=== PATIENT | female | born 1950 | race Caucasian/White ===

== ENCOUNTER 2019-11-08 13:32 | Outpatient (CLI) | payer MEDICARE, SELFPAY ==
--- NOTE | 2019-11-11 11:25 | ONC FU_ITS ---
Dr. Edwards Patient Follow-Up Note Patient: Elen Jones Unit #: [id number]: 1950 Dicatated By: Jairo Edwards M.D.Date of Visit:November 08, 2019 Onc Med Follow-up/Prog Note Chief Complaint: Breast cancer. History of Present Illness: This is a 69 year-old woman with grade 2 infiltrating ductal carcinoma of the left breast, stage IIA (T2, pN1a, M0), ER/SC positive and HER-2/lindsey negative. Sometime over the summer she become aware of any lump in her left breast. She had been getting pretty regular mammogram screening, though she had missed it in 2017. Her bilateral mammogram on 03/02/2018 showed evidence of spiculated mass posteriorly in the left breast in the upper-outer quadrant measuring 1.6 x 1.4 cm. Additional imaging was recommended. Additional mammogram views and left breast ultrasound on 03/11/2018 was BI-RADS 5, highly suspicious for left breast malignancy. Ultrasound-guided needle biopsy of the mass on 03/26/2018 showed grade 2 invasive ductal carcinoma. The breast prognostic profile showed ER positive at 95% and SC positive at 65%. HER-2/lindsey was 2+ by IHC, but negative by FISH with amplification ratio 1.0 and 2.5 HER-2/ copies/cell. The Ki-67 was 10%, intermediate risk. On 04/22/2018 she underwent left breast lumpectomy with axillary lymph node sampling. Pathology was again consistent with grade 2 infiltrating ductal carcinoma. The tumor measured 1.7 x 1.4 cm. There was evidence of lymphovascular space invasion and perineural space invasion. The margins were free of resection. The lymph node sampling included a total of 4 lymph nodes, 3 of which were involved, including the sentinel node. The largest focus measured 2.4 cm, but with no extra capsular extension identified. I had seen her initially on 04/27/2018. She he was adamantly opposed to taking adjuvant chemotherapy. As such, she was referred to Dr. Mcdonald and she was then given radiation to the left breast, completed on 07/06/2018 to a total dose of 6000 cGy. She also received 5000 cGy to the left supraclavicular region. In the meantime, she had started on adjuvant hormonal therapy with letrozole 2.5 mg daily in April 2018. Her other medical illnesses include hypertension and degenerative arthritis/degenerative disease of the spine. Her baseline DEXA scan on 05/06/2018 showed borderline osteoporosis with T score -0.4 in the lumbar spine, -2.3 in the left femoral neck and -2.4 in the right femoral neck. She was started on treatment with alendronate. She has a history of smoking for 50 years, up to 1 1/2 packs of cigarettes daily. She did cut down. She is seen for a follow-up visit. She has been feeling pretty good generally. She has has her energy was low, but it improved after she started taking B12. She has normal activity. ECOG score is 0. She has good appetite. She has no fever. She does have some hot flashes and sweating, but tolerable. She had flu towards the end of June and she had cough with it that lasted for more than a month. It did finally get better, though. She has some shortness of breath, but she says her breathing is pretty good. She does have some cough still. She has a little bit of chest pain. She also has occasional stinging in the area of the left breast/axilla. She has no GI or complaints. She has a little bit of aching, mainly in the shoulders and hands. She says it is tolerable. She has just occasional headache. She does not complain of dizziness. She has some numbness/tingling in her fingers. Medications: Atenolol 1 Tablet (of 25 mg) Oral daily, ClonazePAM 1 Tablet (of 0.5 mg) Oral b.i.d., cumin 1 Capsule Oral daily, Femara 1 Tablet (of 2.5 mg) Oral daily, Fosamax 1 Tablet (of 70 mg) Oral q 7 days, tumeric 1 Capsule Oral daily, Vitamin B12 1 Tablet Oral daily Allergies: No Known Allergies. Review of Systems: Constitutional - She has been generally feeling good. Her energy is good. She has normal activity. Her appetite is good and weight is stable. No fever or chills. She is having hot flashes with sweating. ECOG score is 0, ENMT - No sinus congestion/drainage. No mouth sores. No sore throat or difficulty swallowing, Hematologic/Lymphatic - No abnormal bruising or bleeding, Respiratory - She gets short of breath with exertion. No cough. No pleuritic pain or hemoptysis. She continues to smoke 0.5- 1 pack daily, Cardiovascular - She has occasional anginal pain. No palpitations, Gastrointestinal - No nausea or vomiting. No heartburn or acid reflux. No diarrhea or constipation. No blood in the stool or black stools, Genitourinary (F) - No dysuria or hematuria. No urinary frequency. No urgency or incontinence, Musculoskeletal - She has unchanged arthritis pain in her hands and shoulders, Integumentary - No skin complications, Neurologic - She has a sinus headache. No dizziness. She has tingling in her fingers, Psychiatric - No anxiety or depression. No insomnia. Vital Signs: Her weight is 165 pounds. Blood pressure 142/90, pulse 67, respirations 22, temp 98.6 degrees, and oxygen saturation 94%. Physical Examination: Constitutional - She looks good generally, Eyes - Sclerae nonicteric. Conjunctivae clear, ENMT - No lesions noted in the oral cavity, Hematologic/Lymphatic - No cervical or clavicular adenopathy, Respiratory - Lungs sound clear with some decrease in air movement bilaterally, Cardiovascular - Heart rhythm is regular. There is no murmur, gallop, or rub noted, Breasts - There is mild induration in the left breast. There is no breast mass noted. There is no axillary adenopathy, Abdomen - Soft. Liver and spleen are not enlarged. There is no abdominal mass or ascites noted and there is no inguinal adenopathy, Extremities - No edema. Pedal pulses are palpable bilaterally, Neurologic - No focal neurologic deficits noted. Lab/Imaging: Test performed on November 03, 2019 11:37 Cholesterol, Total 195 mg/dL Glucose 99 mg/dL BUN 13 mg/dL HDL Cholesterol 60 mg/dL Creatinine 0.8 mg/dL LDL Cholesterol 107 mg/dL Cr Clearance (Est) 71.71 mL/min VLDL Cholesterol 28 mg/dL Triglycerides 140 mg/dL Sodium 137 mmol/L Potassium 4.6 mmol/L Chloride 101 mmol/L CO2 25 mmol/L Calcium 9.9 mg/dL Protein, Total 7.3 g/dL Albumin 4.6 g/dL Globulin 2.7 g/dL A/G Ratio 1.7 Absolute Value Bilirubin, Total 0.6 mg/dL Alkaline Phosphatase 49 IU/L AST (SGOT) 25 IU/L ALT (SGPT) 23 IU/L WBC 7.6 10^9/L RBC 5.04 10^12/L HGB 15.4 g/dL HCT 45.6 % MCV 91 fl MCH 30.6 pg MCHC 33.8 g/dL RDW 12.5 % Platelet Count 285 10^9/L Neutrophils (Gran) 5.3 10^9/L Lymphocytes 1.52 10^9/L Monocytes 0.532 10^9/L Eosinophils 0.152 10^9/L Basophils 0.076 10^9/L Impression: 1. Patient with grade 2 infiltrating ductal carcinoma of the left breast, stage IIA (T2, pN1a, M0), ER/SC positive and HER-2/lindsey negative. 2. She underwent left breast biopsy on 03/26/2018 followed by left breast lumpectomy with axillary node sampling on 04/22/2018. 3. She underwent radiation to the left breast, completed on 07/06/2018 to a total dose of 6000 cGy. She also received 5000 cGy to the left supraclavicular region. 4. Adjuvant hormonal therapy with letrozole 2.5 mg daily began in April 2018. 5. She was found to have borderline osteoporosis on her baseline bone density, T score -2.3 in the left femoral neck and -2.4 in the right femoral neck. Her other medical illnesses include: 6. Hypertension. 7. Degenerative arthritis/degenerative disease of the spine. 8. She has a significant smoking history and clinically she appears to have some underlying COPD. She has been undergoing adjuvant hormonal therapy with letrozole 2.5 mg daily. She has known osteoporosis, and she also has some joint pain with it, but it has been tolerable, and it has not been getting any worse. She has some mild hot flashes and some occasional mood swings, also tolerable. Overall, she has been doing well clinically, and thus far there has been no evidence of recurrence of the breast cancer. Plan: She continues adjuvant hormonal therapy with letrozole 2.5 mg daily. She also continues alendronate 70 mg weekly for the osteoporosis, and she will continue her vitamin D supplementation. She will be scheduled for a followup visit in 6 months. She will have repeat bone density study with that visit. Signed By: Jairo Edwards M.D. <<Signature on File>>
== END 2019-11-08 13:33 | disposition home or self-care (01) ==
LOC: ONCMED 13:38
PROVIDERS: PCP Family Medicine; Visit Provider Internal Medicine Medical Oncology
DX: C50.412 Malignant neoplasm of upper-outer quadrant of left female breast (principal); Z17.0 Estrogen receptor positive status [ER+]; C77.3 Secondary and unspecified malignant neoplasm of axilla and upper limb lymph nodes; M81.0 Age-related osteoporosis without current pathological fracture; I10 Essential (primary) hypertension; M48.9 Spondylopathy, unspecified; M19.90 Unspecified osteoarthritis, unspecified site; J44.9 Chronic obstructive pulmonary disease, unspecified; Z92.3 Personal history of irradiation; Z79.811 Long term (current) use of aromatase inhibitors; Z87.891 Personal history of nicotine dependence
CPT/HCPCS: 99214

== ENCOUNTER → 2020-04-13 08:40 | Outpatient (BNVA) | payer MEDICARE, SELFPAY | PROVIDERS: PCP Family Medicine; Visit Provider Surgery | DX: Z11.59 Encounter for screening for other viral diseases (principal) | CPT/HCPCS: 87635 ==

== ENCOUNTER 2020-04-16 09:46 | Outpatient (CLI) | payer MEDICARE, SELFPAY ==
--- NOTE | 2020-04-16 09:53 | MM_ITS ---
WS: [id number] DIAGNOSTIC BILATERAL DIGITAL MAMMOGRAM WITH CAD HISTORY: HX OF BREAST CA COMPARISON: 04/15/2019, 03/11/2018, 03/02/2018 and 03/31/2016 TECHNIQUE: Bilateral craniocaudad, mediolateral oblique, and mediolateral views are submitted. Comput er aided detection utilized. Breast composition: There are scattered areas of fibroglandular density. Loss and postsurgical changes in the LEFT breast. Mild diffuse increased trabecular pattern and skin thickening. Postsurgical site along the posterior LEFT chest is unchanged. No progression. MM/[place] [id number] IMPRESSION: BI-RADS: 2-Benign FOLLOW UP: 1 Year Follow-up
== END 2020-04-16 09:47 | disposition home or self-care (01) ==
PROVIDERS: PCP Family Medicine; Visit Provider Internal Medicine Medical Oncology
DX: Z85.3 Personal history of malignant neoplasm of breast (principal)
CPT/HCPCS: 77066

== ENCOUNTER 2020-04-17 07:55 | Day surgery (SDC) | payer MEDICARE, SELFPAY ==
[2020-04-17 08:09] VITALS: BMI 27.7
[2020-04-17 08:14] VITALS: BP 140/91; PULSE 72; RESP 20; TEMP 36.1; O2SAT 99
[2020-04-17] MEDS: sodium chloride 0.9% 1,000 ML 30 ML IV (08:19)
--- NOTE | 2020-04-17 08:36 | ANES.PREANE2 ---
Pre-Anesthetic Assessment Pre-Anesthetic Assessment: Height/Weight: Height 1.64 m Weight 74.389 kg Temp Pulse Resp BP Pulse Ox 97 F L 72 20 H 140/91 99 04/17/20 08:14 04/17/20 08:14 04/17/20 08:14 04/17/20 08:14 04/17/20 08:14 Preop Diagnosis: screening Proposed Procedure: Operation Date: 04/17/20 09:30 Proposed Procedures p Colonoscopy 96916 Z12.11(Not Applicable) - Kavin Martinez MD Familial anesthetic complications: none Was Beta Colby taken within 24 hours: Yes Last intake: Intake Last Liquid Date 04/16/20 Last Liquid Time 23:55 Last Solid Date 04/15/20 Last Solid Time 18:00 Social: Social History: Tobacco and No alcohol Exam: Pre-Anes Outpt Exam: alert, oriented x 3, clear to auscultation bilaterally and regular rate & rhythm Airway: Cervical ROM: WNL MP: 1 Dentition: False Additional comments: dentures currently in CV/HEM: CV/HEM: HTN Anesthetic Plan: ASA status: 2 Anesthesia: MAC Risk of > 500 ml blood loss (7ml/kg in children): No Meds/Allergies Current Medications: Current Medications Generic Name Dose Route Start Last Admin Trade Name Freq PRN Reason Stop Dose Admin Sodium Chloride 1,000 mls @ 30 ml s/hr 04/17/20 08:15 04/17/20 08:19 Sodium Chloride 0.9% IV 04/18/20 08:14 30 mls/hr .Q24H MEAGHAN Administration Data Anesthesia Cardiac Studies: No Data to Display
--- NOTE | 2020-04-17 09:32 | W.PM.OPSFHP ---
Same Day Surgery H&P Indication for Procedure/HPI DATE OF PROCEDURE: April 17, 2020 CHIEF COMPLAINT/INDICATIONFOR SURGICAL PROCEDURE: screening PREOP DIAGNOSIS: screening PLANNED PROCEDRUE: Operation Date: 04/17/20 09:30 Proposed Procedures p Colonoscopy 74683 Z12.11(Not Applicable) - Kavin Martinez MD Medications/Allergies* Home Medications Medication Instructions Recorded Confirmed Type alendronate 70 mg tablet 70 mg PO DIRECTED 03/26/20 04/17/20 History atenolol 25 mg tablet 25 mg PO DAILY 03/26/20 04/17/20 History letrozole 2.5 mg tablet 2.5 mg PO DAILY 03/26/20 04/17/20 History Immune Support Complex 2 ea PO DAILY 04/16/20 04/17/20 History clonazepam 0.5 mg PO DAILY PRN 04/16/20 04/17/20 History cyanocobalamin (vitamin B-12) 1,000 mcg PO DAILY 04/17/20 04/17/20 History [Vitamin B-12] Allergies/Adverse Reactions Allergy/AdvReac Type Severity Reaction Status Date / Time No Known Allergies Allergy Unverified 03/26/20 16:26 Current Medications: Generic Name Dose Route Start Last Admin Trade Name Freq PRN Reason Stop Dose Admin Sodium Chloride 1,000 mls @ 30 mls/hr 04/17/20 08:15 04/17/20 08:19 Sodium Chloride 0.9% IV 04/18/20 08:14 30 mls/hr .Q24H MEAGHAN Administration Pertinent Exam Findings alert, oriented x 3 and regular rate & rhythm Recommendations Surgery/Procedure today Coding Level of Care Code 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
[2020-04-17 10:45] VITALS: BP 90/60; PULSE 60; RESP 16; TEMP 36.1; O2SAT 100
[2020-04-17 10:58] VITALS: BP 128/82; PULSE 69; RESP 18; O2SAT 96
--- NOTE | 2020-04-17 11:05 | ANE.PACU2 ---
Inpatient post-anesthesia follow up: Airway intact: Yes Vital signs: Temperature 97 F Pulse Rate 69 Respiratory Rate 18 Blood Pressure 128/82 Pulse Oximetry 96 Oxygen Delivery Me thod Room Air Oxygen Flow Rate 2 Fraction of Inspir ed Oxygen Hydration adequate: Yes Nausea and vomiting: No Pain level: 1 Mental status: Baseline
== END 2020-04-17 11:08 | disposition home or self-care (01) ==
PROVIDERS: PCP Family Medicine; Visit Provider Surgery
PROC: 0DJD8ZZ Inspection of Lower Intestinal Tract, Via Natural or Artificial Opening Endoscopic (ICD-10-PCS; CPT 45378; principal; 2020-04-17 09:30)
DX: Z12.11 Encounter for screening for malignant neoplasm of colon (principal); K57.30 Diverticulosis of large intestine without perforation or abscess without bleeding; K64.8 Other hemorrhoids; D12.5 Benign neoplasm of sigmoid colon; I10 Essential (primary) hypertension
CPT/HCPCS: 12345; 45385; 88305; J7030

== ENCOUNTER 2020-05-11 14:37 | Outpatient (CLI) | payer MEDICARE, SELFPAY ==
--- NOTE | 2020-05-11 14:42 | XR_ITS ---
WS: [id number] Bone mineral density performed on a [facility], 2 day Clinical data: OSTEOPOROSIS Comparison study: DEXA scan, 05/06/2018. Findings: The first 4 lumbar vertebral bodies demonstrated the bone mineral density of 1.120 g/cm2 for a young adult T score of -0.5. Measurement of the left hip reveals a bone mineral density of 0.700 g/cm2 with a young adult T score of -2.4. Measurement of the right hip reveals the bone mineral density of 0.703 g/cm2 for young adult T score of -2.4. XR/XR DEXA axial skeleton* [id number] Impression: 1. The bone mineral density of the lumbar spine is normal and there is minimal slight decrease in bone mineral density compared to the prior study. 2. Both hips show osteopenia and there is a slight decrease in the bone mineral density from the prior study.
== END 2020-05-11 14:38 | disposition home or self-care (01) ==
LOC: RADWPI 14:41
PROVIDERS: PCP Internal Medicine; Visit Provider Internal Medicine Medical Oncology
DX: M81.0 Age-related osteoporosis without current pathological fracture (principal); M85.88 Other specified disorders of bone density and structure, other site
CPT/HCPCS: 77080

== ENCOUNTER → 2020-05-15 14:17 | Outpatient (BNVA) | payer MEDICARE, SELFPAY | PROVIDERS: PCP Nurse Practitioner Family; Referring Provider Nurse Practitioner Family; Visit Provider Specialist | DX: G56.02 Carpal tunnel syndrome, left upper limb (principal) | CPT/HCPCS: 95907 ==

== ENCOUNTER 2020-05-17 14:15 | Outpatient (CLI) | payer MEDICARE, SELFPAY ==
[2020-05-17 15:02] LABS: Basophils # 0.1 10^3/uL (0.0-0.1); Basophils % 0.8 %; Eosinophils # 0.1 10^3/uL (0.0-0.8); Eosinophils % 1.8 %; Hematocrit 44.2 % (37.0-47.0); Hemoglobin 14.3 g/dL (11.5-15.3); Lymphocytes # 1.7 10^3/uL (0.8-4.8); Lymphocytes % 22.3 %; Mean Corpuscular HGB Conc 32.4 g/dL (30.0-36.0); Mean Corpuscular Hemoglobin 30.1 pg (28.0-34.0); Mean Corpuscular Volume 93.1 fL (81-99); Mean Platelet Volume 8.9 fL (7.4-10.4); Monocytes # 0.5 10^3/uL (0.2-0.9); Monocytes % 5.9 %; Neutrophils # 5.34 10^3/uL (1.8-7.7); Neutrophils % 68.7 %; Nucleated Red Blood Cells % 0 %; Platelet Count 266 10^3/cmm (130-400); Red Blood Count 4.75 10^6/uL (4.1-5.3); Red Cell Distribution Width 12.9 % (12.1-15.1); White Blood Count 7.8 10^3/uL (4.0-10.0)
[2020-05-17 15:39] LABS: 25 Hydroxy Vitamin D 39 ng/mL (30-100); Alanine Aminotransferase 15 U/L (0-33); Albumin Level 4.2 g/dL (3.5-5.2); Alkaline Phosphatase 53 IU/L (35-105); Anion Gap 12.6 (5-19); Aspartate Amino Transferase 18 U/L (0-32); Blood Urea Nitrogen 18 mg/dL (8-23); Calcium 9.6 mg/dL (8.5-10.5); Carbon Dioxide 27 mmol/L (22-29); Chloride 101 mmol/L (98-107); Globulin 2.8 g/dL (1.3-4.6); Glomerular Filtration Rate 99.1 mL/min (90-130); Glucose 88 mg/dL (65-115); Osmolality Calculated 283 mOsm/kg (285-295); Potassium 4.6 mmol/L (3.5-5.1); Sodium 136 mmol/L (136-145); Total Bilirubin 0.3 mg/dL (0.15-1.2)
[2020-05-17] MEDS: pneumococcal (23 valent) SDV 0.5 mL IM (16:43)
--- NOTE | 2020-05-20 13:54 | ONC FU_ITS ---
Dr. Edwards Patient Follow-Up Note Patient: Elen Jones Unit #: [id number]: [id number] Dicatated By: Jairo Edwards M.D.Date of Visit:May 17, 2020 Onc Med Follow-up/Prog Note Chief Complaint: Breast cancer. History of Present Illness: This is a 70 year-old woman with grade 2 infiltrating ductal carcinoma of the left breast, stage IIA (T2, pN1a, M0), ER/CA positive and HER-2/lindsey negative. Sometime over the summer she become aware of any lump in her left breast. She had been getting pretty regular mammogram screening, though she had missed it in 2017. Her bilateral mammogram on 03/02/2018 showed evidence of spiculated mass posteriorly in the left breast in the upper-outer quadrant measuring 1.6 x 1.4 cm. Additional imaging was recommended. Additional mammogram views and left breast ultrasound on 03/11/2018 was BI-RADS 5, highly suspicious for left breast malignancy. Ultrasound-guided needle biopsy of the mass on 03/26/2018 showed grade 2 invasive ductal carcinoma. The breast prognostic profile showed ER positive at 95% and CA positive at 65%. HER-2/lindsey was 2+ by IHC, but negative by FISH with amplification ratio 1.0 and 2.5 HER-2/ copies/cell. The Ki-67 was 10%, intermediate risk. On 04/22/2018 she underwent left breast lumpectomy with axillary lymph node sampling. Pathology was again consistent with grade 2 infiltrating ductal carcinoma. The tumor measured 1.7 x 1.4 cm. There was evidence of lymphovascular space invasion and perineural space invasion. The margins were free of resection. The lymph node sampling included a total of 4 lymph nodes, 3 of which were involved, including the sentinel node. The largest focus measured 2.4 cm, but with no extra capsular extension identified. I had seen her initially on 04/27/2018. She he was adamantly opposed to taking adjuvant chemotherapy. As such, she was referred to Dr. Mcdonald and she was then given radiation to the left breast, completed on 07/06/2018 to a total dose of 6000 cGy. She also received 5000 cGy to the left supraclavicular region. In the meantime, she had started on adjuvant hormonal therapy with letrozole 2.5 mg daily in April 2018. Her other medical illnesses include hypertension and degenerative arthritis/degenerative disease of the spine. Her baseline DEXA scan on 05/06/2018 showed borderline osteoporosis with T score -0.4 in the lumbar spine, -2.3 in the left femoral neck and -2.4 in the right femoral neck. She was started on treatment with alendronate. She has a history of smoking for 50 years, up to 1 1/2 packs of cigarettes daily. She did cut down. She is seen for a follow-up visit. She has been feeling good generally. Her energy has been okay. She has normal activity. ECOG score is 0. Her appetite is good. She has not had fever or night sweats. She does have some hot flashes. She has shortness of breath and cough. She has been having some pain in the lateral left breast/left axillary area. She otherwise does not have chest pain. She has no GI or complaints. She has arthritis pain in her hands, and she also has some back pain, that is unchanged. She is having problems with carpal tunnel symptoms on the left. Medications: Atenolol 1 Tablet (of 25 mg) Oral daily, ClonazePAM 1 Tablet (of 0.5 mg) Oral b.i.d., Femara 1 Tablet (of 2.5 mg) Oral daily, Fosamax 1 Tablet (of 70 mg) Oral q 7 days, Hair Skin & Nails Advanced 1 Tablet Oral daily, tumeric 1 Capsule Oral daily, Vitamin B12 1 Tablet Oral daily Allergies: No Known Allergies. Review of Systems: Constitutional - Her energy is okay. She has normal activity. Appetite is good and weight is stable. No fever or night sweats. She has hot flashes. ECOG score is 0, ENMT - No sinus congestion/drainage. No mouth sores. No sore throat or difficulty swallowing, Hematologic/Lymphatic - No abnormal bruising or bleeding, Breasts - She has pain intermittently in the upper outer left breast/left axilla, Respiratory - She has some shortness of breath and cough. She is down to smoking 1/2 pack of cigarettes daily. No pleuritic pain or hemoptysis, Cardiovascular - No angina pain. No palpitations, Gastrointestinal - No nausea or vomiting. No heartburn or acid reflux. No diarrhea or constipation. She has had a recent colonoscopy, and she was found to have a couple of polyps. No blood in the stool or black stools, Genitourinary (F) - No dysuria or hematuria. No urinary frequency. No urgency or incontinence, Musculoskeletal - She has arthritis pain in her hands and she has back pain, Integumentary - No skin rash, Neurologic - No headache or dizziness. She has numbness/tingling in her left hand. She apparently has confirmed carpal tunnel on the left and somewhat on the right. No other focal neurologic symptoms, Psychiatric - No anxiety or depression. No insomnia. Vital Signs: Performed on May 17, 2020 15:29 Height - 65.00 in Weight - 164.2 lbs (HIGH) BSA - 1.82 sq.m BMI - 27.32 Temperature - 98.0 F (LOW) Pulse - 68 /min Respiration - 18 /min BP - 140/79 mm(hg) O2 Sat - 98 % Pain - 0 Physical Examination: Constitutional - She looks good generally, Eyes - Sclerae nonicteric. Conjunctivae clear, ENMT - No lesions noted in the oral cavity, Hematologic/Lymphatic - No cervical or clavicular adenopathy, Respiratory - Lungs sound clear with some decrease in air movement bilaterally, Cardiovascular - Heart rhythm is regular. There is no murmur, gallop, or rub noted, Breasts - The right breast shows no mass. There is mild induration of the left breast, and there are some tiny scattered nodules palpable, none of which appear suspicious. There is no axillary adenopathy noted, Abdomen - Soft. Liver and spleen are not enlarged. There is no abdominal mass or ascites noted and there is no inguinal adenopathy, Extremities - No edema. Pedal pulses are palpable bilaterally, Neurologic - No focal neurologic deficits noted. Lab/Imaging: Test performed on May 17, 2020 14:40 Sodium 136 mmol/L Vitamin D (25-Hydroxy), Total 39 ng/mL Potassium 4.6 mmol/L Chloride 101 mmol/L CO2 27 mmol/L Anion Gap 12.6 BUN 18 mg/dL Creatinine 0.6 mg/dL Cr Clearance (Est) 104.0500 mL/min eGFR 99.1 mL/min Glucose 88 mg/dL Osmolality - Calculated 283 mOsm/kg Calcium 9.6 mg/dL Protein, Total 7.0 g/dL Albumin 4.2 g/dL Globulin 2.8 g/dL Bilirubin, Total 0.3 mg/dL ALT (SGPT) 15 U/L AST (SGOT) 18 U/L Alkaline Phosphatase 53 IU/L WBC 7.8 10 3/uL RBC 4.75 10 6/uL HGB 14.3 g/dL HCT 44.2 % MCV 93.1 fL MCH 30.1 pg MCHC 32.4 g/dL RDW 12.9 % Platelet Count 266 10 3/cmm MPV 8.9 fL Neutrophils 5.34 10 3/uL Lymphocytes 1.7 10 3/uL Monocytes 0.5 10 3/uL Eosinophils 0.1 10 3/uL Basophils 0.1 10 3/uL Neutrophil % 68.7 % Lymphocyte % 22.3 % Monocyte % 5.9 % Eosinophil % 1.8 % Basophils % 0.8 % NRBC % 0 % Impression: 1. Patient with grade 2 infiltrating ductal carcinoma of the left breast, stage IIA (T2, pN1a, M0), ER/CA positive and HER-2/lindsey negative. 2. She underwent left breast biopsy on 03/26/2018 followed by left breast lumpectomy with axillary node sampling on 04/22/2018. 3. She underwent radiation to the left breast, completed on 07/06/2018 to a total dose of 6000 cGy. She also received 5000 cGy to the left supraclavicular region. 4. Adjuvant hormonal therapy with letrozole 2.5 mg daily began in April 2018. 5. She was found to have borderline osteoporosis on her baseline bone density, T score -2.3 in the left femoral neck and -2.4 in the right femoral neck. Her other medical illnesses include: 6. Hypertension. 7. Degenerative arthritis/degenerative disease of the spine. 8. She has a significant smoking history and clinically she appears to have some underlying COPD. She has been undergoing adjuvant hormonal therapy with letrozole 2.5 mg daily. She has known osteoporosis, for which she is on treatment with Fosamax. She has some hot flashes and some musculoskeletal pain with the letrozole, but overall she has tolerated it very well and thus far there has been no evidence of recurrence of the breast cancer. Plan: She continues adjuvant hormonal therapy with letrozole 2.5 mg daily. She also continues alendronate 70 mg weekly for the osteoporosis, and she will continue her vitamin D supplementation. She will be scheduled for a followup visit in 6 months. In the meantime, I will arrange for referral for management of her carpal tunnel syndrome. Signed By: Jairo Edwards M.D. <<Signature on File>>
== END 2020-05-17 14:16 | disposition home or self-care (01) ==
LOC: ONCMED 14:21
PROVIDERS: PCP Nurse Practitioner Family; Visit Provider Internal Medicine Medical Oncology
DX: C50.412 Malignant neoplasm of upper-outer quadrant of left female breast (principal); C77.3 Secondary and unspecified malignant neoplasm of axilla and upper limb lymph nodes; M81.0 Age-related osteoporosis without current pathological fracture; Z17.0 Estrogen receptor positive status [ER+]; Z23 Encounter for immunization; Z92.3 Personal history of irradiation; I10 Essential (primary) hypertension; M47.9 Spondylosis, unspecified; J44.9 Chronic obstructive pulmonary disease, unspecified; F17.210 Nicotine dependence, cigarettes, uncomplicated; G56.00 Carpal tunnel syndrome, unspecified upper limb; Z79.811 Long term (current) use of aromatase inhibitors
CPT/HCPCS: 36415; 80053; 82306; 85025; 90471; 90686; 90732; 99214

== ENCOUNTER 2020-11-14 12:49 | Outpatient (CLI) | payer MEDICARE, SELFPAY ==
[2020-11-14 13:39] LABS: Basophils % 0.6 %; Eosinophils # 0.1 10^3/uL (0.0-0.8); Eosinophils % 1.4 %; Hematocrit 45.3 % (37.0-47.0); Hemoglobin 14.5 g/dL (11.5-15.3); Lymphocytes # 0.6 10^3/uL (0.8-4.8); Lymphocytes % 11.7 %; Mean Corpuscular Hemoglobin 29.7 pg (28.0-34.0); Mean Corpuscular Volume 92.6 fL (81-99); Mean Platelet Volume 8.9 fL (7.4-10.4); Monocytes # 0.3 10^3/uL (0.2-0.9); Monocytes % 5.7 %; Neutrophils # 4.12 10^3/uL (1.8-7.7); Neutrophils % 80.2 %; Nucleated Red Blood Cells % 0 %; Platelet Count 234 10^3/cmm (130-400); Red Blood Count 4.89 10^6/uL (4.1-5.3); Red Cell Distribution Width 12.9 % (12.1-15.1); White Blood Count 5.1 10^3/uL (4.0-10.0)
[2020-11-14 14:28] LABS: Alanine Aminotransferase 12 U/L (0-33); Albumin Level 4.1 g/dL (3.5-5.2); Alkaline Phosphatase 46 IU/L (35-105); Anion Gap 12.4 (5-19); Aspartate Amino Transferase 17 U/L (0-32); Blood Urea Nitrogen 14 mg/dL (8-23); Calcium 8.4 mg/dL (8.5-10.5); Carbon Dioxide 25 mmol/L (22-29); Chloride 105 mmol/L (98-107); Globulin 2.8 g/dL (1.3-4.6); Glomerular Filtration Rate 122.3 mL/min (90-130); Glucose 84 mg/dL (65-115); Osmolality Calculated 286 mOsm/kg (285-295); Potassium 4.4 mmol/L (3.5-5.1); Sodium 138 mmol/L (136-145); Total Bilirubin 0.3 mg/dL (0.15-1.2); Total Protein 6.9 g/dL (6.6-8.7)
--- NOTE | 2020-11-15 07:14 | ONC FU_ITS ---
Dr. Edwards Patient Follow-Up Note Patient: Elen Jones Unit #: [id number]: 1950 Dicatated By: Jairo Edwards M.D.Date of Visit:November 14, 2020 Onc Med Follow-up/Prog Note Chief Complaint: Breast cancer. History of Present Illness: This is a 70 year-old woman with grade 2 infiltrating ductal carcinoma of the left breast, stage IIA (T2, pN1a, M0), ER/DE positive and HER-2/lindsey negative. Sometime over the summer she become aware of any lump in her left breast. She had been getting pretty regular mammogram screening, though she had missed it in 2017. Her bilateral mammogram on 03/02/2018 showed evidence of spiculated mass posteriorly in the left breast in the upper-outer quadrant measuring 1.6 x 1.4 cm. Additional imaging was recommended. Additional mammogram views and left breast ultrasound on 03/11/2018 was BI-RADS 5, highly suspicious for left breast malignancy. Ultrasound-guided needle biopsy of the mass on 03/26/2018 showed grade 2 invasive ductal carcinoma. The breast prognostic profile showed ER positive at 95% and DE positive at 65%. HER-2/lindsey was 2+ by IHC, but negative by FISH with amplification ratio 1.0 and 2.5 HER-2/ copies/cell. The Ki-67 was 10%, intermediate risk. On 04/22/2018 she underwent left breast lumpectomy with axillary lymph node sampling. Pathology was again consistent with grade 2 infiltrating ductal carcinoma. The tumor measured 1.7 x 1.4 cm. There was evidence of lymphovascular space invasion and perineural space invasion. The margins were free of resection. The lymph node sampling included a total of 4 lymph nodes, 3 of which were involved, including the sentinel node. The largest focus measured 2.4 cm, but with no extra capsular extension identified. I had seen her initially on 04/27/2018. She he was adamantly opposed to taking adjuvant chemotherapy. As such, she was referred to Dr. Mcdonald and she was then given radiation to the left breast, completed on 07/06/2018 to a total dose of 6000 cGy. She also received 5000 cGy to the left supraclavicular region. In the meantime, she had started on adjuvant hormonal therapy with letrozole 2.5 mg daily in April 2018. Her other medical illnesses include hypertension and degenerative arthritis/degenerative disease of the spine. Her baseline DEXA scan on 05/06/2018 showed borderline osteoporosis with T score -0.4 in the lumbar spine, -2.3 in the left femoral neck and -2.4 in the right femoral neck. She was started on treatment with alendronate. She has a history of smoking for 50 years, up to 1 1/2 packs of cigarettes daily. She did cut down to 1/2 pack per day and more recently to 3 cigarettes per day. She is seen for a follow-up visit. She has been feeling good generally. She has good energy and activity tolerance. ECOG score is 0. She has good appetite. She complains that she has been gaining weight like crazy. She does not have fever or night sweats. She still has occasional power surges . She has has a little bit of a dry cough. She does not complain of shortness of breath or chest pain. She has no GI or complaints other than occasional acid reflux, which she manages with Tums. She has no significant joint or bone pain. She does not complain of headache. She occasionally has dizziness. She continues to have numbness in her hands. She does wear braces at night, which helps, but they are not practical for use during the daytime. Medications: Atenolol 1 Tablet (of 25 mg) Oral daily, ClonazePAM 1 Tablet (of 0.5 mg) Oral b.i.d., Femara 1 Tablet (of 2.5 mg) Oral daily, Hair Skin & Nails Advanced 1 Tablet Oral daily Allergies: No Known Allergies. Vital Signs: Performed on November 14, 2020 14:27 Height - 65.00 in Weight - 170.2 lbs (HIGH) BSA - 1.85 sq.m BMI - 28.32 Temperature - 97.0 F (LOW) Pulse - 72 /min Respiration - 18 /min BP - 12/78 mm(hg) (LOW) O2 Sat - 96 % Pain - 0 Physical Examination: Constitutional - She looks good generally, Eyes - Sclerae nonicteric. Conjunctivae clear, ENMT - No lesions noted in the oral cavity, Hematologic/Lymphatic - No cervical, clavicular, or axillary adenopathy, Respiratory - Lungs sound clear with some decrease in air movement bilaterally, Cardiovascular - Heart rhythm is regular. There is no murmur, gallop, or rub noted, Abdomen - Soft. Liver and spleen are not enlarged. There is no abdominal mass or ascites noted and there is no inguinal adenopathy, Extremities - No edema, Neurologic - No focal neurologic deficits noted. Lab/Imaging: Test performed on November 14, 2020 13:01 Sodium 138 mmol/L Potassium 4.4 mmol/L Chloride 105 mmol/L CO2 25 mmol/L Anion Gap 12.4 BUN 14 mg/dL Creatinine 0.5 mg/dL Cr Clearance (Est) 129.4200 mL/min eGFR 122.3 mL/min Glucose 84 mg/dL Osmolality - Calculated 286 mOsm/kg Calcium 8.4 mg/dL Protein, Total 6.9 g/dL Albumin 4.1 g/dL Globulin 2.8 g/dL Bilirubin, Total 0.3 mg/dL ALT (SGPT) 12 U/L AST (SGOT) 17 U/L Alkaline Phosphatase 46 IU/L WBC 5.1 10 3/uL RBC 4.89 10 6/uL HGB 14.5 g/dL HCT 45.3 % MCV 92.6 fL MCH 29.7 pg MCHC 32.0 g/dL RDW 12.9 % Platelet Count 234 10 3/cmm MPV 8.9 fL Neutrophils 4.12 10 3/uL Lymphocytes 0.6 10 3/uL Monocytes 0.3 10 3/uL Eosinophils 0.1 10 3/uL Basophils 0.0 10 3/uL Neutrophil % 80.2 % Lymphocyte % 11.7 % Monocyte % 5.7 % Eosinophil % 1.4 % Basophils % 0.6 % NRBC % 0 % Problem List: 1. Grade 2 infiltrating ductal carcinoma of the left breast, stage IIA (T2, pN1a, M0), ER/DE positive and HER-2/lindsey negative. 2. She was found to have borderline osteoporosis on her baseline bone density, T score -2.3 in the left femoral neck and -2.4 in the right femoral neck. 3. Hypertension. 4. Degenerative arthritis/degenerative disease of the spine. 5. She has a significant smoking history and clinically she appears to have some underlying COPD. 6. She has symptoms of carpal tunnel syndrome bilaterally. Problems Addressed with this Encounter and Plan: 1. Patient with grade 2 infiltrating ductal carcinoma of the left breast, stage IIA (T2, pN1a, M0), ER/DE positive and HER-2/lindsey negative. She underwent left breast biopsy on 03/26/2018 followed by left breast lumpectomy with axillary node sampling on 04/22/2018. She underwent radiation to the left breast, completed on 07/06/2018 to a total dose of 6000 cGy. She also received 5000 cGy to the left supraclavicular region. Adjuvant hormonal therapy with letrozol began in April 2018. She has tolerated the letrozole with no significant adverse effects and thus far during follow-up there has been no evidence of recurrence of the breast cancer. She will continue letrozole 2.5 mg daily. She will be scheduled for a follow-up visit in 6 months. 2. She was found to have borderline osteoporosis on her baseline bone density, T score -2.3 in the left femoral neck and -2.4 in the right femoral neck. She also continues alendronate 70 mg weekly and she will continue her vitamin D supplementation. 3. She has symptoms of carpal tunnel syndrome bilaterally. She is being followed in orthopedic clinic. 4. She has a significant smoking history. She is trying to quit. However, she is at risk for lung cancer I did offer her the option of a lung cancer screening CT. Signed By: Jairo Edwards M.D. <<Signature on File>>
== END 2020-11-14 12:50 | disposition home or self-care (01) ==
LOC: ONCMED 12:52
PROVIDERS: PCP Nurse Practitioner Family; Visit Provider Internal Medicine Medical Oncology
DX: C50.812 Malignant neoplasm of overlapping sites of left female breast (principal); Z17.0 Estrogen receptor positive status [ER+]; M81.0 Age-related osteoporosis without current pathological fracture; I10 Essential (primary) hypertension; M47.9 Spondylosis, unspecified; F17.210 Nicotine dependence, cigarettes, uncomplicated; J44.9 Chronic obstructive pulmonary disease, unspecified; G56.03 Carpal tunnel syndrome, bilateral upper limbs; Z79.811 Long term (current) use of aromatase inhibitors
CPT/HCPCS: 80053; 85025; 99214

== ENCOUNTER 2021-04-18 10:51 | Outpatient (CLI) | payer MEDICARE, SELFPAY ==
--- NOTE | 2021-04-18 10:57 | MM_ITS ---
WS: [id number] BILATERAL DIGITAL DIAGNOSTIC MAMMOGRAM MAMMOGRAPHY WITH CAD CLINICAL INFORMATION: HX OF BREAST CA HISTORY: COMPARISON: April 16, 2020 TECHNIQUE: Bilateral CC, MLO, and ML views. FINDINGS: Scattered fibroglandular densities bilaterally. A few punctate calcifications. Postoperative changes lumpectomy left breast with parenchymal scarring. Increased trabecular pattern with skin thickening l eft breast is stable due to treatment-related changes. Postoperative changes along the posterior left chest wall is unchanged. Ovoid 9 mm nodule outer right breast is unchanged over multiple prior exams . No suspicious focal mass, asymmetry, calcifications, or architectural distortion. No evidence of vanesa gnancy. MM/[place] [id number] IMPRESSION: BI-RADS: 2-Benign FOLLOW UP: 1 Year Follow-up Recommend return to annual diagnostic mammography.
== END 2021-04-18 10:52 | disposition home or self-care (01) ==
PROVIDERS: PCP Nurse Practitioner Family; Visit Provider Nurse Practitioner Family
DX: Z85.3 Personal history of malignant neoplasm of breast (principal)
CPT/HCPCS: 77066

== ENCOUNTER 2021-05-01 10:33 | Outpatient (CLI) | payer MEDICARE, SELFPAY ==
[2021-05-01 11:14] LABS: Basophils # 0.1 10^3/uL (0.0-0.1); Basophils % 0.8 %; Eosinophils # 0.1 10^3/uL (0.0-0.8); Eosinophils % 1.6 %; Hematocrit 43.8 % (37.0-47.0); Hemoglobin 14.1 g/dL (11.5-15.3); Lymphocytes # 1.4 10^3/uL (0.8-4.8); Lymphocytes % 23.3 %; Mean Corpuscular HGB Conc 32.2 g/dL (30.0-36.0); Mean Corpuscular Hemoglobin 29.5 pg (28.0-34.0); Mean Corpuscular Volume 91.6 fl (81-99); Monocytes # 0.4 10^3/uL (0.2-0.9); Monocytes % 6.6 %; Neutrophils % 67.4 %; Nucleated Red Blood Cells % 0 %; Platelet Count 270 10^3/cmm (130-400); Red Blood Count 4.78 10^6/uL (4.1-5.3); Red Cell Distribution Width 13.1 % (12.1-15.1); White Blood Count 6.1 10^3/uL (4.0-10.0)
[2021-05-01 11:46] LABS: Alanine Aminotransferase 11 U/L (0-33); Albumin Level 4.2 g/dL (3.5-5.2); Alkaline Phosphatase 37 IU/L (35-105); Anion Gap 12.5 (5-19); Aspartate Amino Transferase 16 U/L (0-32); Blood Urea Nitrogen 11 mg/dL (8-23); Calcium 9.5 mg/dL (8.5-10.5); Carbon Dioxide 27 mmol/L (22-29); Chloride 102 mmol/L (98-107); Globulin 2.7 g/dL (1.3-4.6); Glomerular Filtration Rate 98.8 mL/min (90-130); Glucose 84 mg/dL (65-115); Osmolality Calculated 283 mOsm/kg (285-295); Potassium 4.5 mmol/L (3.5-5.1); Sodium 137 mmol/L (136-145); Total Bilirubin 0.4 mg/dL (0.15-1.2); Total Protein 6.9 g/dL (6.6-8.7)
[2021-05-01 23:53] LABS: 25 Hydroxy Vitamin D 35 ng/mL (30-100)
--- NOTE | 2021-05-02 06:35 | ONC FU_ITS ---
Dr. Edwards Patient Follow-Up Note Patient: Elen Jones Unit #: [id number]: 1950 Dicatated By: Jairo Edwards M.D.Date of Visit:May 01, 2021 Onc Med Follow-up/Prog Note Chief Complaint: Breast cancer. History of Present Illness: This is a 71 year-old woman with grade 2 infiltrating ductal carcinoma of the left breast, stage IB (T2, pN1a, M0), ER/RI positive and HER-2/lindsey negative. Sometime over the summer she become aware of any lump in her left breast. She had been getting pretty regular mammogram screening, though she had missed it in 2017. Her bilateral mammogram on 03/02/2018 showed evidence of spiculated mass posteriorly in the left breast in the upper-outer quadrant measuring 1.6 x 1.4 cm. Additional imaging was recommended. Additional mammogram views and left breast ultrasound on 03/11/2018 was BI-RADS 5, highly suspicious for left breast malignancy. Ultrasound-guided needle biopsy of the mass on 03/26/2018 showed grade 2 invasive ductal carcinoma. The breast prognostic profile showed ER positive at 95% and RI positive at 65%. HER-2/lindsey was 2+ by IHC, but negative by FISH with amplification ratio 1.0 and 2.5 HER-2/ copies/cell. The Ki-67 was 10%, intermediate risk. On 04/22/2018 she underwent left breast lumpectomy with axillary lymph node sampling. Pathology was again consistent with grade 2 infiltrating ductal carcinoma. The tumor measured 1.7 x 1.4 cm. There was evidence of lymphovascular space invasion and perineural space invasion. The margins were free of resection. The lymph node sampling included a total of 4 lymph nodes, 3 of which were involved, including the sentinel node. The largest focus measured 2.4 cm, but with no extra capsular extension identified. I had seen her initially on 04/27/2018. She he was adamantly opposed to taking adjuvant chemotherapy. As such, she was referred to Dr. Mcdonald and she was then given radiation to the left breast, completed on 07/06/2018 to a total dose of 6000 cGy. She also received 5000 cGy to the left supraclavicular region. In the meantime, she had started on adjuvant hormonal therapy with letrozole 2.5 mg daily in April 2018. Her other medical illnesses include hypertension and degenerative arthritis/degenerative disease of the spine. Her baseline DEXA scan on 05/06/2018 showed borderline osteoporosis with T score -0.4 in the lumbar spine, -2.3 in the left femoral neck and -2.4 in the right femoral neck. She was started on treatment with alendronate. She has a history of smoking for 50 years, up to 1 1/2 packs of cigarettes daily. She did cut down to 1/2 pack per day and more recently to 3 cigarettes per day. She is seen for a follow-up visit. She has been feeling pretty good generally. Her energy is somewhat variable, and she does have some fatigue. She is doing housework. ECOG score is 1. Appetite is good. She has not had fever. She says she gets really hot and sweaty about an hour after she takes her medication in the morning. She does not have night sweating and she otherwise does not have hot flashes. She has not had sore mouth or throat. She says her breathing has been okay. She has a little bit of cough. She is smoking only a little bit now. She does not complain of chest pain. She sometimes has a little bit of acid reflux. For the past several weeks she has been having loose stools after eating. She has no other GI or complaints. She has joint pain, mainly in her right knee and left shoulder. She also has some neck pain, but all that is about the same. She does not complain of headache or dizziness. Since her last visit she has had carpal tunnel surgery, no symptoms have improved significantly. Medications: Atenolol 1 Tablet (of 25 mg) Oral daily, ClonazePAM 1 Tablet (of 0.5 mg) Oral b.i.d., Femara 1 Tablet (of 2.5 mg) Oral daily Allergies: No Known Allergies. Vital Signs: Performed on May 01, 2021 12:43 Height - 65.00 in Weight - 165.6 lbs (LOW) BSA - 1.83 sq.m BMI - 27.56 Temperature - 97.8 F (LOW) Pulse - 80 /min Respiration - 18 /min BP - 134/78 mm(hg) O2 Sat - 97 % Pain - 5 Fatigue - 6 Physical Examination: Constitutional - She looks good generally, Eyes - Sclerae nonicteric. Conjunctivae clear, ENMT - No lesions noted in the oral cavity, Hematologic/Lymphatic - No cervical or clavicular adenopathy, Respiratory - Lungs sound clear with some decrease in air movement bilaterally, Cardiovascular - Heart rhythm is regular. There is no murmur, gallop, or rub noted, Breasts - The right breast shows no mass. There is mild induration in the left breast. There is no mass noted. There is no axillary adenopathy, Abdomen - Soft. Liver and spleen are not enlarged. There is no abdominal mass or ascites noted and there is no inguinal adenopathy, Extremities - No edema. There are purpuric lesions on both arms, Neurologic - No focal neurologic deficits noted. Lab/Imaging: Test performed on May 01, 2021 10:50 Sodium 137 mmol/L Vitamin D (25-Hydroxy), Total 35 ng/mL Potassium 4.5 mmol/L Chloride 102 mmol/L CO2 27 mmol/L Anion Gap 12.5 BUN 11 mg/dL Creatinine 0.6 mg/dL Cr Clearance (Est) 103.46 mL/min eGFR 98.8 mL/min Glucose 84 mg/dL Osmolality - Calculated 283 mOsm/kg Calcium 9.5 mg/dL Protein, Total 6.9 g/dL Albumin 4.2 g/dL Globulin 2.7 g/dL Bilirubin, Total 0.4 mg/dL ALT (SGPT) 11 U/L AST (SGOT) 16 U/L Alkaline Phosphatase 37 IU/L WBC 6.1 10 3/uL RBC 4.78 10 6/uL HGB 14.1 g/dL HCT 43.8 % MCV 91.6 fl MCH 29.5 pg MCHC 32.2 g/dL RDW 13.1 % Platelet Count 270 10 3/cmm MPV 9.0 fL Neutrophils 4.10 10 3/uL Lymphocytes 1.4 10 3/uL Monocytes 0.4 10 3/uL Eosinophils 0.1 10 3/uL Basophils 0.1 10 3/uL Neutrophil % 67.4 % Lymphocyte % 23.3 % Monocyte % 6.6 % Eosinophil % 1.6 % Basophils % 0.8 % NRBC % 0 % Problem List: 1. Grade 2 infiltrating ductal carcinoma of the left breast, stage IB (T2, pN1a, M0), ER/RI positive and HER-2/lindsey negative. 2. She was found to have borderline osteoporosis on her baseline bone density, T score -2.3 in the left femoral neck and -2.4 in the right femoral neck. 3. Hypertension. 4. Degenerative arthritis/degenerative disease of the spine. 5. She has a significant smoking history and clinically she appears to have some underlying COPD. 6. She has symptoms of carpal tunnel syndrome bilaterally. Problems Addressed with this Encounter and Plan: 1. Patient with grade 2 infiltrating ductal carcinoma of the left breast, stage IB (T2, pN1a, M0), ER/RI positive and HER-2/lindsey negative. She underwent left breast biopsy on 03/26/2018 followed by left breast lumpectomy with axillary node sampling on 04/22/2018. She underwent radiation to the left breast, completed on 07/06/2018 to a total dose of 6000 cGy. She also received 5000 cGy to the left supraclavicular region. Adjuvant hormonal therapy with letrozole began in April 2018. She has been toleratiing it pretty well. Thus far during follow-up there has been no evidence of recurrence of the breast cancer. She will continue letrozole 2.5 mg daily. She will be scheduled for a follow-up visit in 6 months. 2. She was found to have borderline osteoporosis on her baseline bone density, T score -2.3 in the left femoral neck and -2.4 in the right femoral neck. She continues treatment with alendronate 70 mg weekly and she continues her vitamin D supplementation. Signed By: Jairo Edwards M.D. <<Signature on File>>
== END 2021-05-01 10:34 | disposition home or self-care (01) ==
LOC: ONCMED 10:35
PROVIDERS: PCP Nurse Practitioner Family; Visit Provider Internal Medicine Medical Oncology
DX: C50.912 Malignant neoplasm of unspecified site of left female breast (principal); Z17.0 Estrogen receptor positive status [ER+]; M81.0 Age-related osteoporosis without current pathological fracture; I10 Essential (primary) hypertension; J44.9 Chronic obstructive pulmonary disease, unspecified; M47.9 Spondylosis, unspecified; F17.210 Nicotine dependence, cigarettes, uncomplicated; Z79.899 Other long term (current) drug therapy
CPT/HCPCS: 36415; 80053; 82306; 85025; 90471; 99214

== ENCOUNTER 2021-12-12 14:13 | Oncology outpatient (recurring) (ONCR) | payer MEDICARE, SELFPAY ==
[2021-12-12 14:29] LABS: Basophils # 0.1 10^3/uL (0.0-0.1); Basophils % 0.9 %; Eosinophils # 0.1 10^3/uL (0.0-0.8); Eosinophils % 1.4 %; Hematocrit 42.6 % (37.0-47.0); Lymphocytes % 25.3 %; Mean Corpuscular HGB Conc 32.9 g/dL (30.0-36.0); Mean Corpuscular Hemoglobin 29.3 pg (28.0-34.0); Mean Corpuscular Volume 89.1 fl (81-99); Monocytes # 0.5 10^3/uL (0.2-0.9); Monocytes % 5.6 %; Neutrophils # 5.32 10^3/uL (1.8-7.7); Neutrophils % 66.4 %; Nucleated Red Blood Cells % 0 %; Platelet Count 258 10^3/cmm (130-400); Red Blood Count 4.78 10^6/uL (4.1-5.3); Red Cell Distribution Width 13.1 % (12.1-15.1)
[2021-12-12 15:14] LABS: Alanine Aminotransferase 11 U/L (0-33); Albumin Level 4.4 g/dL (3.5-5.2); Alkaline Phosphatase 45 IU/L (35-105); Anion Gap 12.7 (5-19); Aspartate Amino Transferase 17 U/L (0-32); Blood Urea Nitrogen 12 mg/dL (8-23); Calcium 9.6 mg/dL (8.5-10.5); Carbon Dioxide 28 mmol/L (22-29); Chloride 103 mmol/L (98-107); Globulin 2.6 g/dL (1.3-4.6); Glomerular Filtration Rate 61.9 mL/min (90-130); Glucose 117 mg/dL (65-115); Osmolality Calculated 291 mOsm/kg (285-295); Potassium 3.7 mmol/L (3.5-5.1); Sodium 140 mmol/L (136-145); Total Bilirubin 0.3 mg/dL (0.15-1.2)
[2021-12-12 15:29] LABS: 25 Hydroxy Vitamin D 43 ng/mL (30-100)
== END 2021-12-26 23:59 | disposition home or self-care (01) ==
PROVIDERS: PCP Nurse Practitioner Family; Visit Provider Internal Medicine Medical Oncology
DX: C50.412 Malignant neoplasm of upper-outer quadrant of left female breast (principal); Z17.0 Estrogen receptor positive status [ER+]; Z79.818 Long term (current) use of other agents affecting estrogen receptors and estrogen levels; M85.80 Other specified disorders of bone density and structure, unspecified site; Z79.899 Other long term (current) drug therapy; Z92.3 Personal history of irradiation
CPT/HCPCS: 80053; 82306; 85025; 99214

== ENCOUNTER 2022-05-02 13:49 | Outpatient (CLI) | payer MEDICARE, SELFPAY ==
--- NOTE | 2022-05-02 13:59 | MM_ITS ---
WS: [id number] BILATERAL 3D TOMOSYNTHESIS DIGITAL DIAGNOSTIC MAMMOGRAPHY WITH CAD CLINICAL INFORMATION: HX OF BREAST CA COMPARISON: April 18, 2021 TECHNIQUE: Bilateral CC, MLO, and ML views. FINDINGS: Scattered fibroglandular densities bilaterally. Stable intramammary lymph node RIGHT breast. Punctate and lucent centered calcifications. Postoperative changes LEFT lumpectomy with skin thickening and t reatment-related changes. Stable treatment-related trabecular thickening LEFT breast. A few punctate calcifications. No suspicious focal mass, asymmetry, calcifications, or architectural distortion. No evidence of vanesa gnancy. MM/[place] [id number] IMPRESSION: BI-RADS: 2-Benign FOLLOW UP: 1 Year Follow-up Recommend return to annual diagnostic mammography.
== END 2022-05-02 13:50 | disposition home or self-care (01) ==
LOC: RAD 13:49
PROVIDERS: PCP Nurse Practitioner Family; Visit Provider Internal Medicine Medical Oncology
DX: Z85.3 Personal history of malignant neoplasm of breast (principal)
CPT/HCPCS: 77062

== ENCOUNTER 2022-06-17 13:12 | Oncology outpatient (recurring) (ONCR) | payer MEDICARE, SELFPAY | END 2022-06-28 23:59 | disposition home or self-care (01) | PROVIDERS: PCP Nurse Practitioner Family; Visit Provider Internal Medicine Medical Oncology | DX: C50.812 Malignant neoplasm of overlapping sites of left female breast (principal); Z17.0 Estrogen receptor positive status [ER+]; C77.3 Secondary and unspecified malignant neoplasm of axilla and upper limb lymph nodes; Z79.818 Long term (current) use of other agents affecting estrogen receptors and estrogen levels; Z92.3 Personal history of irradiation; Z23 Encounter for immunization | CPT/HCPCS: 90471; 90686; 99214 ==

== ENCOUNTER 2023-05-04 09:31 | Outpatient (CLI) | payer MEDICARE, SELFPAY ==
--- NOTE | 2023-05-04 10:00 | MM_ITS ---
WS: [id number] DIAGNOSTIC BILATERAL DIGITAL BREAST TOMOSYNTHESIS MAMMOGRAPHY WITH CAD HISTORY: History of LEFT breast cancer. COMPARISON: 05/02/2022, 04/18/2021, 04/16/2020 TECHNIQUE: Bilateral craniocaudad, mediolateral oblique, and mediolateral views are submitted with to mosynthesis and SM. Computer aided detection utilized. Breast composition: There are scattered areas of fibroglandular density. Volume loss LEFT breast. Hu ign calcifications in each breast. Long-term stability of the mass measuring 9 mm RIGHT breast at 9:0 0. IMPRESSION: MM/[place] [id number] BI-RADS: 2-Benign FOLLOW UP: 1 Year Follow-up
== END 2023-05-04 09:32 | disposition home or self-care (01) ==
LOC: RAD 09:31
PROVIDERS: PCP Family Medicine; Visit Provider Internal Medicine Medical Oncology
DX: Z85.3 Personal history of malignant neoplasm of breast (principal)
CPT/HCPCS: 77062; G0279

== ENCOUNTER 2023-06-15 13:54 | Oncology outpatient (recurring) (ONCR) | payer MEDICARE, SELFPAY ==
[2023-06-15] MEDS: flu vacc pf 2023-24 (6 mos+) 60 MCG IM (15:07)
== END 2023-06-28 23:59 | disposition home or self-care (01) ==
PROVIDERS: PCP Family Medicine; Visit Provider Internal Medicine Medical Oncology
DX: C50.412 Malignant neoplasm of upper-outer quadrant of left female breast (principal); M85.80 Other specified disorders of bone density and structure, unspecified site; F17.210 Nicotine dependence, cigarettes, uncomplicated; Z79.899 Other long term (current) drug therapy; Z23 Encounter for immunization
CPT/HCPCS: 90471; 90686; 99214

== ENCOUNTER 2023-08-24 13:34 | Outpatient (CLI) | payer MEDICARE, SELFPAY ==
--- NOTE | 2023-08-24 14:00 | CT_ITS ---
WS: [id number] LDCT LUNG CANCER SCREENING HISTORY: CT lung cancer screening TECHNIQUE: Axial imaging performed from the apices to 1 cm below the costophrenic angles. Coronal and sagittal reformats are submitted with axial MIP series. All CT scans at [facility] use at least one of these dose optimization techniques: automated exposure control; mA and/or kV adjustment per patient size (includes targeted exams where dose is matched to clinical indication); or iterativ e reconstruction. DLP: 51.80 mGy.cm DIvol: Mean CTDIvol: 1.10 (mGy) COMPARISON: 05/19/2018 Diagnostic quality: Satisfactory Lungs: Mild hyperinflation and emphysema. No pulmonary mass or nodules. No endobronchial lesions. No pneumonia. Heart: Normal size heart with no pericardial effusion.. Other findings: Moderate coronary artery calcifications. Mild atherosclerosis aorta. Pulmonary artery is mildly dilated. No adenopathy. Reidentified is the 9 mm mass in the RIGHT breast unchanged since 2018. Stomach is markedly distended with food products. Stable LEFT adrenal adenoma. Increase in the thoracic kyphosis. IMPRESSION: CT/CT lung screening [id number] LUNG-RADS: 1-Negative FOLLOW UP: 12 Month: Continue annual screening with LDCT OTHER FINDINGS (S MODIFIER): None.
--- NOTE | 2023-08-24 14:15 | XR_ITS ---
WS: [id number] DEXA (DUAL ENERGY X-RAY ABSORPTIOMETRY) Bone mineral density was performed using a [employer] machine. HISTORY: osteopenia COMPARISON: 05/11/2020 Lumbar spine BMD (L1-L4): 1.101 g/cm2 T score: -0.7 Z score: 0.8 Total hip BMD: Left: 0.814 g/cm2. T score: -1.5 Z score: -0.1 Right: 0.701 g/cm2. T score: -2.4 Z score: -1.0 10 year probability of a major osteoporotic fracture is 17.8%. Compared to the prior study from 05/11/2020. Lumbar spine bone mineral density has decreased by 1.7%. Bilateral hips bone mineral density has increased by 8.0%. IMPRESSION: OSTEOPENIA based upon the WHO classification for females. Significant increase in bone mineral density within the hips since the prior study. No significant ch quinten in the lumbar spine.
== END 2023-08-24 13:35 | disposition home or self-care (01) ==
LOC: RAD 13:34
PROVIDERS: PCP Family Medicine; Visit Provider Internal Medicine Medical Oncology
DX: Z13.820 Encounter for screening for osteoporosis (principal); Z12.2 Encounter for screening for malignant neoplasm of respiratory organs; M85.80 Other specified disorders of bone density and structure, unspecified site; J43.9 Emphysema, unspecified
CPT/HCPCS: 71271; 77080